=== PATIENT | female | born 1950 | race Caucasian/White ===

== ENCOUNTER 2023-03-01 19:37 | Emergency (ER) | payer OTHER, SELFPAY ==
[2023-03-01 19:41] VITALS: BP 169/74; PULSE 84; RESP 18; TEMP 36.9; O2SAT 99; BMI 23.2
--- NOTE | 2023-03-01 19:52 | DI.RAD.S_ITS ---
PROCEDURE: XR RIBS LT MIN 3V W CXR1V INDICATIONS: pain after fall TECHNIQUE: 2 views of the left ribs were acquired, along with a single view chest. COMPARISON: None. FINDINGS: Surgical changes and devices: None. Bones and chest wall: No fractures or dislocations. No suspicious bony lesions. Overlying soft tissues appear unremarkable. Lungs and pleura: No pleural effusions or pneumothorax. Lungs appear clear. Mediastinum: Mediastinal contours appear normal. Heart size is normal. IMPRESSION: No displaced rib fractures. No acute cardiopulmonary findings. Dictated by: Radha Dover M.D. on 03/01/2023 at 20:57 Approved by: Radha Dover M.D. on 03/01/2023 at 20:58
--- NOTE | 2023-03-01 19:54 | DI.CT.S_ITS ---
PROCEDURE: CT HEAD/BRAIN WO CON INDICATIONS: Fall after syncope TECHNIQUE: Noncontrast 4.5 mm thick angled axial sections acquired from the foramen magnum to the vertex, with coronal and sagittal reformats. For radiation dose reduction, the following was used: automated exposure control, adjustment of mA and/or kV according to patient size. COMPARISON: None. FINDINGS: Image quality: Excellent. CSF spaces: Basal cisterns are patent. No extra-axial fluid collections. Ventricles are normal in size and shape. Brain: No midline shift. No intracranial masses or hemorrhage. Kinsey-white matter interface is normal. Skull and face: Calvarium and visualized facial bones are intact, without suspicious lesions. Sinuses: Visualized sinuses and mastoids are clear. IMPRESSION: No acute intracranial findings. Dictated by: Radha Dover M.D. on 03/01/2023 at 20:22 Approved by: Radha Dover M.D. on 03/01/2023 at 20:24
[2023-03-01 20:16] LABS: Add Manual Diff / Slide Review NO; Basophils Absolute Auto 100 /uL (0-100); Basophils Percent Auto 0.6 % (0-2); Eosinophils Absolute Auto 100 /uL (0-450); Eosinophils Percent Auto 1.6 % (2-4); Hematocrit 40.8 % (36-46); Hemoglobin 14.1 g/dL (12.0-16.0); Lymphocytes Absolute Auto 1900 /uL (1100-4500); Lymphocytes Percent Auto 24.1 % (25-40); Mean Corpuscular HGB Conc 34.5 % (30-36); Mean Corpuscular Hemoglobin 32.4 PG (26-34); Mean Corpuscular Volume 93.7 fL (80-100); Monocytes Absolute Auto 800 /uL (0-900); Monocytes Percent Auto 10.1 % (3-14); Neutrophils Absolute Auto 5100 /uL (1500-7000); Neutrophils Percent Auto 63.6 % (50-75); Platelet Count 263 X10^3/uL (150-400); Red Blood Cell Count 4.35 X10^6/uL (4.0-5.2); Red Cell Distribution Width 12.7 % (11.6-14.8)
[2023-03-01 20:19] LABS: Prothrombin Time 11.3 SECONDS (10.1-12.7)
[2023-03-01 20:22] LABS: PTT Partial Thromboplastin Tim 31 SECONDS (26-36)
[2023-03-01 20:23] VITALS: BP 141/67
[2023-03-01 20:23] LABS: Alanine Aminotransferase 24 IU/L (<35); Albumin 4.2 g/dL (3.5-5.0); Albumin Globulin Ratio 1.6 (1.0-2.8); Alkaline Phosphatase 80 U/L (38-126); Aspartate Aminotransferase 33 IU/L (14-36); BUN Creatinine Ratio 28.3 (6-22); Bilirubin Total 0.4 mg/dL (0.2-1.3); Blood Urea Nitrogen 15 mg/dL (7-17); Calcium 9.1 mg/dL (8.4-10.2); Carbon Dioxide 28 mmol/L (22-32); Chloride 105 mmol/L (98-107); Creatine Kinase 97 U/L (30-135); Estimated Glomerular Filt Rate > 60 mL/min (>60); Globulin 2.7 g/dL (1.7-4.1); Glucose 107 mg/dL (80-110); HEMOLYSIS < 15 (0-50); Lipase 96 U/L (23-300); Magnesium 1.9 mg/dL (1.6-2.3); Sodium 138 mmol/L (137-145); Total Protein 6.9 g/dL (6.3-8.2)
[2023-03-01 20:25] VITALS: PULSE 88; RESP 20; O2SAT 96
[2023-03-01 20:30] VITALS: BP 138/70; PULSE 83; RESP 34; O2SAT 96
[2023-03-01 20:35] LABS: Troponin I < 0.012 ng/mL (0.01-0.034)
--- NOTE | 2023-03-01 20:38 | ED_ITS ---
HPI - General Adult General Chief complaint: Syncope Stated complaint: Fainting spell, Fall, Head lac, On aspirin Time Seen by Provider: 03/01/23 19:54 Source: patient Mode of arrival: Ambulatory Limitations: no limitations History of Present Illness HPI narrative: Patient is a 73-year-old female who is here for evaluation of a syncopal episode. She stated that she was getting out of her car with her grandkids. She states she would a fairly sudden onset of nausea. She would no other associated symptoms to include chest pain or palpitations or shortness of breath. Has not been vomiting. She stated that the next thing she knew she was lying on the ground their grandchild standing over top of her. There was no postictal state. She sustained a small abrasion to the back of her head and also to her right knee. She also has pain to her left rib. She is never passed out in the past but she has had 2 prior episodes where she had some ?memory fall? and other memory issues. States she is had an extensive workup of these without a definitive explanation. The time my evaluation she states she feels m uch better. Related Data Allergies Allergy/AdvReac Type Severity Reaction Status Date / Time No Known Drug Allergies Allergy Verified 03/01/23 19:41 Review of Systems Constitutional Constitutional: Reports system reviewed and no additional complaints, except as documented Cardiovascular Cardiovascular: Reports system reviewed and no additional complaints, except as documented Respiratory Respiratory: Reports system reviewed and no additional complaints, except as documented Gastrointestinal Gastrointestinal: Reports system reviewed and no additional complaints, except as documented Integumentary/Breasts Skin/Breast: Reports system reviewed and no additional complaints, except as documented Neurologic Neurologic: Reports system reviewed and no additional complaints, except as documented Hematologic/Lymphatic On Anticoagulants: No Patient History Social History Smoking Status: Never smoker Smoking Status: Never smoker Exam Initial Vital Signs Initial Vital Signs: Vital Signs Temperature 98.4 F 03/01/23 19:41 Pulse Rate 84 03/01/23 19:41 Respiratory Rate 18 03/01/23 19:41 Blood Pressure 169/74 H 03/01/23 19:41 Pulse Oximetry 99 03/01/23 19:41 Oxygen Delivery Method Room Air 03/01/23 19:41 Const General: cooperative and comfortable HENMT Head: abrasion (Back of head) Face and sinus: normal facial exam Resp Effort & Inspection: normal respiratory effort Auscultation: clear to auscultation bilaterally Cardio Rate: regular rate Rhythm: regular rhythm Back/Spine/Pelvis Cervical Spine: No cervical spinal tenderness Skin Other: Patient with a superficial abrasion on the occipital portion of the scalp Neuro General: patient alert, patient awake, patient oriented x3 and moves all extremities Cognition: normal cognition Speech: speech normal Extrem General: normal to inspection and capillary refill normal Course Orders Ordered: ED Orders 03/01/23 19:52 XR ribs LT min 3V w CXR1V Stat 03/01/23 19:53 EKG-12 Lead Stat 03/01/23 19:54 CT head/brain wo con Stat 03/01/23 20:00 Complete Blood Count AUTO DIFF Stat Comprehensive Metabolic Panel Stat Lipase Stat Magnesium Stat PTT Partial Thromboplastin Holger Stat Prothrombin Time INR Stat Troponin & CK Cardiac Panel Stat Vital Signs Vital signs: Vital Signs - 8 hr 03/01/23 19:41 03/01/23 20:23 03/01/23 20:25 Temperature 98.4 F Pulse Rate 84 88 Respiratory Rate 18 20 Blood Pressure 169/74 H 141/67 H Pulse Oximetry 99 96 Oxygen Delivery Method Room Air Room Air 03/01/23 20:30 03/01/23 20:30 03/01/23 21:00 Temperature Pulse Rate 83 Respiratory Rate 34 H Blood Pressure 138/70 136/73 Pulse Oximetry 96 Oxygen Delivery Method 03/01/23 21:00 03/01/23 21:30 03/01/23 21:30 Temperature Pulse Rate 92 H 82 Respiratory Rate 34 H 20 Blood Pressure 129/73 Pulse Oximetry 96 97 Oxygen Delivery Method Room Air Medical Decision Making Lab Data Lab results reviewed: Yes I reviewed the patient's lab results. 03/01/23 20:00 03/01/23 20:00 Labs: Lab Results 03/01/23 03/01/23 03/01/23 Range/Units 20:00 20:00 20:00 WBC 8.0 (4.5-11.0) X10^3/uL RBC 4.35 (4.0-5.2) X10^6/uL Hgb 14.1 (12.0-16.0) g/dL Hct 40.8 (36-46) % MCV 93.7 (80-100) fL MCH 32.4 (26-34) PG MCHC 34.5 (30-36) % RDW 12.7 (11.6-14.8) % Plt Count 263 (150-400) X10^3/uL Neut % (Auto) 63.6 (50-75) % Lymph % (Auto) 24.1 L (25-40) % [place] % (Auto) 10.1 (3-14) % Eos % (Auto) 1.6 L (2-4) % Baso % (Auto) 0.6 (0-2) % Neut # (Auto) 5100 (9643-8225) /uL Lymph # (Auto) 1900 (8651-0573) /uL [place] # (Auto) 800 (0-900) /uL Eos # (Auto) 100 (0-450) /uL Baso # (Auto) 100 (0-100) /uL PT 11.3 (10.1-12.7) SECONDS INR 1.0 (0.9-1.3) APTT 31 (26-36) SECONDS Sodium 138 (137-145) mmol/L Potassium 4.0 (3.4-5.1) mmol/L Chloride 105 (98-107) mmol/L Carbon Dioxide 28 (22-32) mmol/L BUN 15 (7-17) mg/dL Creatinine 0.53 (0.52-1.04) mg/dL Estimated GFR > 60 (>60) mL/min BUN/Creatinine Ratio 28.3 H (6-22) Glucose 107 (80-110) mg/dL Calcium 9.1 (8.4-10.2) mg/dL Magnesium 1.9 (1.6-2.3) mg/dL Total Bilirubin 0.4 (0.2-1.3) mg/dL AST 33 (14-36) IU/L ALT 24 (<35) IU/L Alkaline Phosphatase 80 (38-126) U/L Total Creatine Kinase 97 (30-135) U/L Troponin I < 0.012 (0.01-0.034) ng/mL Total Protein 6.9 (6.3-8.2) g/dL Albumin 4.2 (3.5-5.0) g/dL Globulin 2.7 (1.7-4.1) g/dL Albumin/Globulin Ratio 1.6 (1.0-2.8) Lipase 96 (23-300) U/L Imaging Data Rib x-ray: Radiologist's Impression: PROCEDURE:? XR RIBS LT MIN 3V W CXR1V ? INDICATIONS:? pain after fall ? TECHNIQUE:? 2 views of the left ribs were acquired, along with a single view chest.? ? COMPARISON:? None. ? FINDINGS:? ? Surgical changes and devices:? None.? ? Bones and chest wall:? No fractures or dislocations.? No suspicious bony lesi ons.? Overlying soft tissues appear unremarkable.? ? Lungs and pleura:? No pleural effusions or pneumothorax.? Lungs appear clear.? ? Mediastinum:? Mediastinal contours appear normal.? Heart size is normal.? ? IMPRESSION:? No displaced rib fractures. No acute cardiopulmonary findings. CT scan - head: Radiologist's Impression: PROCEDURE:? CT HEAD/BRAIN WO CON ? INDICATIONS:? Fall after syncope ? TECHNIQUE:? Noncontrast 4.5 mm thick angled axial sections acquired from the foramen magnum to the vertex, with coronal and sagittal reformats.? For radiation dose reduction, the following was used:? automated exposure control, adjustment of mA and/or kV according to patient size.? ? COMPARISON:? None. ? FINDINGS:? Image quality:? Excellent.? ? CSF spaces:? Basal cisterns are patent.? No extra-axial fluid collections.? Ventricles are normal in size and shape.? ? Brain:? No midline shift.? No intracranial masses or hemorrhage.? Kinsey-white matter interface is normal.? ? Skull and face:? Calvarium and visualized facial bones are intact, without suspicious lesions.? ? Sinuses:? Visualized sinuses and mastoids are clear.? ? IMPRESSION:? No acute intracranial findings. ECG Data Interpretation: Sinus rhythm Ventricular rate 85 Normal axis Normal QRS Normal QTC No ST T wave changes MDM Narrative Medical decision making narrative: The abrasion on the back of her scalp needs no specific intervention here in the ER. It was cleaned. No rib fractures. Labs unremarkable. EKG is unremarkable. I have low suspicion for CVA, TIA, ACS, seizure. Unsure the exact etiology of the syncopal episode. We did discuss the possibility of a cardiac arrhythmia. We discussed contacting her primary doctor for a follow-up. Will discharge patient home. She expressed understanding and agreement. Discharge Plan Departure Patient Disposition: Home Clinical Impression: Syncope, Abrasion of scalp Instructions: DI for Syncope in Adults (Fainting) Activity Restrictions/Additional Instructions: Recommend that you continue to take any medications as directed. I do recommend you contact your primary doctor for a follow-up. Return to the emergency department for new symptoms. Stand Alone Forms: Patient Portal/API
[2023-03-01 21:00] VITALS: BP 136/73; PULSE 92; RESP 34; O2SAT 96
[2023-03-01 21:30] VITALS: BP 129/73; PULSE 82; RESP 20; O2SAT 97
== END 2023-03-01 21:38 | disposition home or self-care (01) ==
PROVIDERS: Emergency Provider Emergency Medicine
DX: R55 Syncope and collapse (principal); S00.01XA Abrasion of scalp, initial encounter; R07.81 Pleurodynia; R07.9 Chest pain, unspecified
CPT/HCPCS: 36415; 70450; 71101; 80053; 82550; 83690; 83735; 84484; 85025; 85610; 85730; 93005; 99284